=== PATIENT | female | born 1940 | race Caucasian/White ===

== ENCOUNTER → 2016-05-31 | Outpatient (CLI) | payer MEDICARE ==
[2014-06-09 18:14] VITALS: BP 151/95
[~2016-05-31] MED LIST: ALLO300T PO; ASPI-482 PO; ESOM40CA PO; FENO135C PO; FURO40TA4 PO; INDO25CA PO; LIPITOR80 MG PO; MULT1TAB52 PO; OLME40TA PO; POTA20TA4 PO; VITA80003 PO; [UNRECOGNIZED DRUG - OTHER]
[2016-05-31 10:27] LABS: BASO % 1 % (0-3); EOS % 1 % (0-3); HEMATOCRIT 45.2 % (36.0-47.0); HEMOGLOBIN 14.5 g/dL (12.0-15.5); LYMPH # 1.8 x10^3/uL (1.0-4.8); LYMPH % 39 % (24-48); MEAN CORPUSCULAR HEMOGLOBIN 29 pg (25-35); MEAN CORPUSCULAR HGB CONC 32 g/dL (31-37); MEAN CORPUSCULAR VOLUME 91 fL (79-100); MONO # 0.4 x10^3/uL (0.0-1.1); MONO % 9 % (0-9); NEUT # 2.3 x10^3uL (1.8-7.7); NEUT % 50 % (31-73); PLATELET COUNT 194 x10^3/uL (140-400); RED BLOOD COUNT 4.96 x10^6/uL (3.50-5.40); RED CELL DISTRIBUTION WIDTH 16.1 % (11.5-14.5); WHITE BLOOD COUNT 4.5 x10^3/uL (4.0-11.0)
[2016-05-31 10:49] LABS: ALBUMIN 3.6 g/dL (3.4-5.0); CALCIUM 9.2 mg/dL (8.5-10.1); CREATININE 0.9 mg/dL (0.6-1.0); GFR 61.2; POTASSIUM 4.4 mmol/L (3.5-5.1); TOTAL BILIRUBIN 0.4 mg/dL (0.2-1.0); TOTAL PROTEIN 7.1 g/dL (6.4-8.2)
== END | disposition home or self-care (01) ==
LOC: LAB 09:06
PROVIDERS: ATTEND Specialist
DX: E78.5 Hyperlipidemia, unspecified (principal); M79.89 Other specified soft tissue disorders
CPT/HCPCS: 36415; 80053; 80061; 83880; 85027

== ENCOUNTER 2017-06-14 09:26 | Emergency (ER) | payer MEDICARE ==
[~2017-06-14] VITALS: Ht 160 cm; Wt 117.9 kg
[~2017-06-14 09:26] MED LIST changes: -OLME40TA PO; +OLME40TA12 PO
[2017-06-14 09:30] VITALS: BP 209/99
--- NOTE | 2017-06-14 09:48 | PHYS DOC ---
Past History Past Medical History: CVA, Hypertension, Other Past Surgical History: , Hysterectomy, Other Alcohol Use: Occasionally Drug Use: None Adult General Chief Complaint Chief Complaint: MECHANICAL FALL HPI HPI 77 year old female patient states she was sleeping at the edge of her bed that is about 2.5 feet high and woke up on the floor of her bedroom 6:30 AM with injury to right side of her face and rated her pain 6/10. Patient also complaining of pain in her neck and right mid back without shortness of breath. Patient complaining of pain in bilateral arms and numbness of both hand since her fall . She doesn't want to have pain medication in ER. Review of Systems Review of Systems Constitutional: Denies fever or chills [] Eyes: Denies change in visual acuity, redness, or eye pain [] HENT: Denies nasal congestion or sore throat [] Respiratory: Denies cough or shortness of breath [] Cardiovascular: No additional information not addressed in HPI [] GI: Denies abdominal pain, nausea, vomiting, bloody stools or diarrhea [] : Denies dysuria or hematuria [] Musculoskeletal: Denies back pain or joint pain [] Integument: Denies rash or skin lesions [] Neurologic: Denies headache, focal weakness or sensory changes [] Endocrine: Denies polyuria or polydipsia [] All other systems were reviewed and found to be within normal limits, except as documented in this note. Allergies Allergies Allergies Coded Allergies Type Severity Reaction Last Updated Verified codeine Allergy Mild vomiting 06/03/14 Yes Physical Exam Physical Exam Constitutional: Well developed, well nourished, no acute distress, non-toxic appearance. [] HENT: Normocephalic, atraumatic, bilateral external ears normal, oropharynx moist, no oral exudates, nose normal. [] Eyes: PERRLA, EOMI, conjunctiva normal, no discharge. [] Neck: Normal range of motion, no tenderness, supple, no stridor. [] Cardiovascular:Heart rate regular rhythm, no murmur [] Lungs & Thorax: Bilateral breath sounds clear to auscultation [] Abdomen: Bowel sounds normal, soft, no tenderness, no masses, no pulsatile masses. [] Skin: Warm, dry, no erythema, no rash. [] Back: No tenderness, no CVA tenderness. [] Extremities: No tenderness, no cyanosis, no clubbing, ROM intact, no edema. [] Neurologic: Alert and oriented X 3, normal motor function, normal sensory function, no focal deficits noted. [] Psychologic: Affect normal, judgement normal, mood normal. [] EKG EKG [] Radiology/Procedures Radiology/Procedures [] [address] [address] IMAGING REPORT Signed PATIENT: ESTRELLITA WHITE ACCOUNT: [id number] : 1940 LOCATION: ER AGE: 77 SEX: F EXAM STATUS: REG ER ORD. PHYSICIAN: ANTONIO MALDONADO MD REASON: fall PROCEDURE: CT HEAD AND CERVICAL SPINE WO CT of the head without contrast, 06/14/2017: HISTORY: Fall, injury The ventricles are within normal limits in size. There is no shift of the midline structures. There is no evidence of acute intracranial hemorrhage or mass effect. Small lucencies are present in the basal ganglia bilaterally compatible with old lacunar infarcts and/or prominent perivascular spaces. There is partial opacification of the left mastoid air cells presumably on an inflammatory basis. The visualized paranasal sinuses are unremarkable. IMPRESSION: 1. No acute intracranial abnormality is detected. 2. Left mastoiditis CT of the cervical spine without contrast, 06/14/2017: Noncontrast scans were obtained with multiplanar reconstructions produced. There is patient motion artifact on some of these images. There is moderate disc space narrowing and marginal spurring at C4-5, C5-6 and C6-7. There are mild to moderate degenerative changes involving scattered facet joints bilaterally. The posterior disc margins are not clearly delineated, however, there is a moderate sized posterior disc protrusion at C4-5 resulting in moderate central spinal stenosis at that level. There is also moderate central spinal stenosis at C5-6 due to spurring and mild canal narrowing at C6-7. Considerable foraminal encroachment is also present bilaterally at these levels. No acute fracture or dislocation is identified. There is extensive calcific plaquing at both carotid bifurcations. IMPRESSION: 1. Moderately severe multilevel degenerative disc disease with moderate central spinal stenosis at C4-5 and C5-6. 2. No acute bony abnormality is detected. Electronically signed by: Claudio Hicks MD (06/14/2017 10:37 AM) [facility] DICTATED AND SIGNED BY: CLAUDIO HICKS MD DATE: 06/14/17 1027 CC: ANTONIO MALDONADO MD; KEN GOULD MD ~ [place] [address] IMAGING REPORT Signed PATIENT: ESTRELLITA WHITE ACCOUNT: [id number] : 1940 LOCATION: ER AGE: 77 SEX: F EXAM STATUS: REG ER ORD. PHYSICIAN: ANTONIO MALDONADO MD REASON: fall PROCEDURE: RIBS RIGHT AND PA CHEST EXAM: Chest and right ribs, 4 views; lumbar spine, 3 views; bilateral humeri, 4 views. HISTORY: Pain. Fall from bed. COMPARISON: None. FINDINGS: Chest and right ribs: A frontal view of the chest and 4 views of the right ribs are obtained. There is no infiltrate, pleural effusion or pneumothorax. The cardiac silhouette is mildly enlarged. No displaced rib fracture is seen. Lumbar spine: Frontal, lateral and coned sacral views of the lumbar spine are obtained. There is grade 1 anterolisthesis of L3 on L4 and L4 and L5. There is facet arthropathy predominantly at the mid lower lumbar levels. There is also degenerative endplate spurring at the lower and mid thoracic levels. Bilateral humeri: Frontal and lateral views of both humeri are obtained. There is no fracture, dislocation or subluxation. IMPRESSION: 1. No acute pulmonary finding. 2. No acute osseous finding. 3. Grade 1 anterolisthesis of L3 on L4 and L4 and L5 and degenerative change within the thoracic and lumbar spine. Electronically signed by: Leticia Kolb MD (06/14/2017 10:15 AM) [id number] DICTATED AND SIGNED BY: LETICIA KOLB MD DATE: 06/14/17 1013 Course & Med Decision Making Course & Med Decision Making Pertinent Imaging studies reviewed. (See chart for details) discharge: I've spoken with the patient and/or caregivers. I've explained the patient's condition, diagnosis and treatment plan based on information available to me at this time. I've answered the patient's and/or caregivers questions and addressed any concerns. The patient and/or caregivers have a good understanding the patient's diagnosis, condition and treatment plan as can be expected at this point. Vital signs have been stabilized. The patient's condition is stable for discharge from the emergency department. The patient will pursue further outpatient evaluation with her primary care provider or other designated consulting physician as outlined in the discharge instructions. Patient and/or caregivers are agreeable to this plan of care and follow-up instructions have been explained in detail. The patient and/or caregivers have received these instructions in written format and expressed understanding of these discharge instructions. The patient and her caregivers are aware that if any significant change in condition or worsening of symptoms should prompt him to immediately return to this of the closest emergency department. If an emergent department is not readily available I would encourage him to call 911. [] Dragon Disclaimer Dragon Disclaimer This electronic medical record was generated, in whole or in part, using a voice recognition dictation system. Departure Departure: Impression: Primary Impression: Facial contusion Additional Impressions: Fall at home Back injury Arm pain Disposition: HOME, SELF-CARE (At 1056) Condition: STABLE Referrals: KEN GOULD MD (PCP) Patient Instructions: Facial or Scalp Contusion, Fall Prevention and Home Safety, Soft Tissue Injury of the Neck Additional Instructions: Drink plenty of liquids Follow-up with your primary care physician in 3-5 days Return to ER if not getting better Apply ice on the affected area Scripts Tramadol Hcl (TRAMADOL HCL) 50 Mg Tablet 50 MG PO PRN Q6HRS Y for PAIN, #14 TAB Prov: ANTONIO MALDONADO MD 06/14/17 Problem Qualifiers ANTONIO MALDONADO MD June 14, 2017 09:48
--- NOTE | 2017-06-14 10:18 | RAD ---
EXAM: Chest and right ribs, 4 views; lumbar spine, 3 views; bilateral humeri, 4 views. HISTORY: Pain. Fall from bed. COMPARISON: None. FINDINGS: Chest and right ribs: A frontal view of the chest and 4 views of the right ribs are obtained. There is no infiltrate, pleural effusion or pneumothorax. The cardiac silhouette is mildly enlarged. No displaced rib fracture is seen. Lumbar spine: Frontal, lateral and coned sacral views of the lumbar spine are obtained. There is grade 1 anterolisthesis of L3 on L4 and L4 and L5. There is facet arthropathy predominantly at the mid lower lumbar levels. There is also degenerative endplate spurring at the lower and mid thoracic levels. Bilateral humeri: Frontal and lateral views of both humeri are obtained. There is no fracture, dislocation or subluxation. IMPRESSION: 1. No acute pulmonary finding. 2. No acute osseous finding. 3. Grade 1 anterolisthesis of L3 on L4 and L4 and L5 and degenerative change within the thoracic and lumbar spine. Electronically signed by: Leticia Tan MD (06/14/2017 10:15 AM) [facility]
--- NOTE | 2017-06-14 10:40 | RAD ---
CT of the head without contrast, 06/14/2017: HISTORY: Fall, injury The ventricles are within normal limits in size. There is no shift of the midline structures. There is no evidence of acute intracranial hemorrhage or mass effect. Small lucencies are present in the basal ganglia bilaterally compatible with old lacunar infarcts and/or prominent perivascular spaces. There is partial opacification of the left mastoid air cells presumably on an inflammatory basis. The visualized paranasal sinuses are unremarkable. IMPRESSION: 1. No acute intracranial abnormality is detected. 2. Left mastoiditis CT of the cervical spine without contrast, 06/14/2017: Noncontrast scans were obtained with multiplanar reconstructions produced. There is patient motion artifact on some of these images. There is moderate disc space narrowing and marginal spurring at C4-5, C5-6 and C6-7. There are mild to moderate degenerative changes involving scattered facet joints bilaterally. The posterior disc margins are not clearly delineated, however, there is a moderate sized posterior disc protrusion at C4-5 resulting in moderate central spinal stenosis at that level. There is also moderate central spinal stenosis at C5-6 due to spurring and mild canal narrowing at C6-7. Considerable foraminal encroachment is also present bilaterally at these levels. No acute fracture or dislocation is identified. There is extensive calcific plaquing at both carotid bifurcations. IMPRESSION: 1. Moderately severe multilevel degenerative disc disease with moderate central spinal stenosis at C4-5 and C5-6. 2. No acute bony abnormality is detected. Electronically signed by: Claudio Hicks MD (06/14/2017 10:37 AM) [facility]
[2017-06-14] MEDS ORDERED: TRAM50TA PO (10:58)
== END 2017-06-14 11:05 | disposition home or self-care (01) ==
LOC: ER 09:26
DX: S00.83XA Contusion of other part of head, initial encounter (principal); S39.92XA Unspecified injury of lower back, initial encounter; M54.2 Cervicalgia; M79.601 Pain in right arm; M79.602 Pain in left arm; I10 Essential (primary) hypertension; Z86.73 Personal history of transient ischemic attack (TIA), and cerebral infarction without residual deficits; Z88.5 Allergy status to narcotic agent; W06.XXXA Fall from bed, initial encounter; Y93.84 Activity, sleeping; Y99.8 Other external cause status; Y92.89 Other specified places as the place of occurrence of the external cause
CPT/HCPCS: 70450; 71101; 72100; 72125; 73060; 99284-25

== ENCOUNTER 2017-09-12 11:25 | Inpatient (IN) | payer MEDICARE ==
[~2017-09-12] VITALS: Ht 160 cm; Wt 115.8 kg
[~2017-09-12 11:25] MED LIST changes: -INDO25CA PO; +INDO25CA5 PO; +TRAM50TA PO
--- NOTE | 2017-09-12 11:36 | EKG ---
[address] [address] Test Date: 2017-09-12 Test Time: 11:34:07 Pat Name: ESTRELLITA WHITE Department: Room: Gender: F Preparation Room Manager: : 1940 Requested By: ANTONIO MALDONADO Order Number: [id number] Reading MD: Measurements Intervals [place] Rate: 58 P: 7 FL: 174 QRS: -11 QRSD: 98 T: 66 QT: 440 QTc: 436 Interpretive Statements SINUS RHYTHM LEFTWARD AXIS QRS(T) CONTOUR ABNORMALITY CONSIDER ANTEROSEPTAL MYOCARDIAL DAMAGE T ABNORMALITY IN HIGH LATERAL LEADS ABNORMAL ECG RI6.01 Unconfirmed report No previous ECG available for comparison
[2017-09-12 11:57] LABS: BASO % 1 % (0-3); EOS % 1 % (0-3); HEMATOCRIT 46.4 % (36.0-47.0); HEMOGLOBIN 15.5 g/dL (12.0-15.5); LYMPH # 2.3 x10^3/uL (1.0-4.8); LYMPH % 35 % (24-48); MEAN CORPUSCULAR HEMOGLOBIN 30 pg (25-35); MEAN CORPUSCULAR HGB CONC 34 g/dL (31-37); MEAN CORPUSCULAR VOLUME 89 fL (79-100); MONO # 0.5 x10^3/uL (0.0-1.1); MONO % 8 % (0-9); NEUT # 3.8 x10^3uL (1.8-7.7); NEUT % 56 % (31-73); PLATELET COUNT 210 x10^3/uL (140-400); RED BLOOD COUNT 5.21 x10^6/uL (3.50-5.40); RED CELL DISTRIBUTION WIDTH 16.3 % (11.5-14.5); WHITE BLOOD COUNT 6.7 x10^3/uL (4.0-11.0)
--- NOTE | 2017-09-12 12:04 | RAD ---
PA and lateral chest radiograph. History: Pain in back and under shoulder. Left upper extremity weakness. Comparison: June 14, 2017. Findings: Cardiomediastinal silhouette is within normal limits for size. Bilateral lung cornejo appear clear without evidence of infiltrate, effusion, or pneumothorax. Multiple thoracic levels demonstrate marginal disc osteophytes. Impression: 1. No acute cardiopulmonary process. Electronically signed by: Wilfrido Dangelo MD (09/12/2017 12:00 PM) [place] [id number]
[2017-09-12 12:34] LABS: ALBUMIN 3.9 g/dL (3.4-5.0); CALCIUM 10.5 mg/dL (8.5-10.1); CREATININE 1.1 mg/dL (0.6-1.0); GFR 48.4; MAGNESIUM 1.8 mg/dL (1.8-2.4); POTASSIUM 3.7 mmol/L (3.5-5.1); TOTAL BILIRUBIN 0.5 mg/dL (0.2-1.0); TOTAL PROTEIN 7.7 g/dL (6.4-8.2)
--- NOTE | 2017-09-12 12:47 | RAD ---
Right upper quadrant abdominal ultrasound History: Left arm and shoulder pain. Comparison: CT abdomen without contrast May 30, 2015. Technique: Transabdominal ultrasound images are obtained. Findings: Visualized pancreas is unremarkable. The head of the pancreas is not well-visualized due to overlying bowel gas. Liver is normal in echogenicity. No focal hepatic masses are identified. Portal flow is hepatopedal. The right hepatic lobe measures 19.3 cm. Gallbladder has an unremarkable appearance. Common bile duct caliber is normal measuring 6 mm in diameter. The right kidney measures 9.7 cm in length and is without evidence of obstruction or stone. There is a right upper pole cyst measuring up to 1.6 cm. IVC is unremarkable. IMPRESSION: 1. Hepatomegaly. 2. Small right renal cyst. Electronically signed by: Martin Quintana MD (09/12/2017 12:44 PM) [id number]
[2017-09-12 12:56] LABS: BILIRUBIN,URINE NEG (NEG); CLARITY,URINE CLEAR; COLOR,URINE YELLOW; GLUCOSE,URINE NEG (NEG); NITRITE,URINE NEG (NEG); UROBILINOGEN,URINE 0.2 mg/dL (0.2 mg/dL)
[2017-09-12] MEDS ORDERED: ASPIRIN 81 MG TAB.CHEW PO ONE (13:00)
--- NOTE | 2017-09-12 13:00 | PHYS DOC ---
Past History Past Medical History: CAD, CVA, High Cholesterol, Hypertension, Kidney Stones Past Surgical History: , Hysterectomy, Other Alcohol Use: None Drug Use: None Adult General Chief Complaint Chief Complaint: CHEST PAIN HPI HPI Patient is a [77] year old [female] who presents with complaining of shoulder blade pain and left hand numbness of the last an hour as a constant sharp pain without radiation. Patient complaining of mild dizziness and palpitation and states she thinks she had a panic attack and hyperventilation. Patient denies injury, chest pain, palpitation, nausea and vomiting, focal neuro deficit except for left hand numbness, recent URI symptoms or dehydration, diarrhea and constipation, urinary symptom. Review of Systems Review of Systems Constitutional: Denies fever or chills [] Eyes: Denies change in visual acuity, redness, or eye pain [] HENT: Denies nasal congestion or sore throat [] Respiratory: Denies cough or shortness of breath [] Cardiovascular: No additional information not addressed in HPI [] GI: Denies abdominal pain, nausea, vomiting, bloody stools or diarrhea [] : Denies dysuria or hematuria [] Musculoskeletal: Reports back pain , denies joint pain [] Integument: Denies rash or skin lesions [] Neurologic: Denies headache, focal weakness or sensory changes [] Endocrine: Denies polyuria or polydipsia [] All other systems were reviewed and found to be within normal limits, except as documented in this note. Allergies Allergies Allergies Coded Allergies Type Severity Reaction Last Updated Verified codeine Allergy Mild vomiting 06/03/14 Yes Physical Exam Physical Exam Constitutional: Well developed, well nourished, mild distress, non-toxic appearance. [] HENT: Normocephalic, atraumatic, oropharynx moist, no oral exudates, nose normal. [] Eyes: PERRLA, EOMI, conjunctiva normal, no discharge. [] Neck: Normal range of motion, no tenderness, supple, no stridor. [] Cardiovascular:Heart rate regular rhythm, no murmur [] Lungs & Thorax: Bilateral breath sounds clear to auscultation, reproducible substernal chest pain [] Abdomen: Bowel sounds normal, soft, no tenderness, no masses, no pulsatile masses. [] Skin: Warm, dry, no erythema, no rash. [] Back: No midline tenderness, no CVA tenderness. [] Extremities: No tenderness, no cyanosis, no clubbing, ROM intact, no edema, no paresthesia. [] Neurologic: Alert and oriented X 3, normal motor function, normal sensory function, no focal deficits noted, NIH scale of 0. [] Psychologic: Affect normal, judgement normal, mood normal. [] Current Patient Data Vital Signs Vital Signs Date Time Temp Pulse Resp B/P (MAP) Pulse Ox O2 Delivery O2 Flow Rate FiO2 09/12/17 12:25 50 16 138/83 (101) 96 Room Air 09/12/17 11:30 98.2 Lab Results Laboratory Tests Test 09/12/17 11:41 White Blood Count 6.7 x10^3/uL (4.0-11.0) Red Blood Count 5.21 x10^6/uL (3.50-5.40) Hemoglobin 15.5 g/dL (12.0-15.5) Hematocrit 46.4 % (36.0-47.0) Mean Corpuscular Volume 89 fL (79-100) Mean Corpuscular Hemoglobin 30 pg (25-35) Mean Corpuscular Hemoglobin Concent 34 g/dL (31-37) Red Cell Distribution Width 16.3 % (11.5-14.5) H Platelet Count 210 x10^3/uL (140-400) Neutrophils (%) (Auto) 56 % (31-73) Lymphocytes (%) (Auto) 35 % (24-48) Monocytes (%) (Auto) 8 % (0-9) Eosinophils (%) (Auto) 1 % (0-3) Basophils (%) (Auto) 1 % (0-3) Neutrophils # (Auto) 3.8 x10^3uL (1.8-7.7) Lymphocytes # (Auto) 2.3 x10^3/uL (1.0-4.8) Monocytes # (Auto) 0.5 x10^3/uL (0.0-1.1) Eosinophils # (Auto) 0.0 x10^3/uL (0.0-0.7) Basophils # (Auto) 0.0 x10^3/uL (0.0-0.2) Prothrombin Time 10.8 SEC (9.4-11.4) Prothrombin Time INR 1.1 (0.9-1.1) Sodium Level 139 mmol/L (136-145) Potassium Level 3.7 mmol/L (3.5-5.1) Chloride Level 101 mmol/L (98-107) Carbon Dioxide Level 29 mmol/L (21-32) Anion Gap 9 (6-14) Blood Urea Nitrogen 28 mg/dL (7-20) H Creatinine 1.1 mg/dL (0.6-1.0) H Estimated GFR (Cockcroft-Gault) 48.4 BUN/Creatinine Ratio 25 (6-20) H Glucose Level 109 mg/dL (70-99) H Calcium Level 10.5 mg/dL (8.5-10.1) H Magnesium Level 1.8 mg/dL (1.8-2.4) Total Bilirubin 0.5 mg/dL (0.2-1.0) Aspartate Amino Transferase (AST) 20 U/L (15-37) Alanine Aminotransferase (ALT) 26 U/L (14-59) Alkaline Phosphatase 77 U/L (46-116) Creatine Kinase 49 U/L (26-192) Creatine Kinase MB (Mass) 1.3 ng/mL (0.0-3.6) Creatine Kinase MB Relative Index 2.7 % (0-4) Troponin I Quantitative < 0.017 ng/mL (0-0.055) DR-Ntx-H-Type Natriuretic Peptide 111 pg/mL (0-449) Total Protein 7.7 g/dL (6.4-8.2) Albumin 3.9 g/dL (3.4-5.0) Albumin/Globulin Ratio 1.0 (1.0-1.7) Lipase 151 U/L (73-393) EKG EKG EKG interpreted by me. EKG at 1134 showed sinus bradycardia at rate of 58, left reynoso axis, poor R-wave progress in anteroseptal leads, no acute ST and T-wave abnormalities Radiology/Procedures Radiology/Procedures [] Course & Med Decision Making Course & Med Decision Making Pertinent Labs and Imaging studies reviewed. (See chart for details) Evaluation of patient in ER showed 77-year-old female patient with complaining of sudden onset of shoulder blade pain and left hand numbness. Patient did not have passed his urine ER. Patient had heart rate of 58 at arrival to ER that gradually dropped to 47 without taking beta akira medication. CT head and labs was unremarkable. Because of bradycardia and multiple cardiac risk factor plan to admit patient for observation Dr. Cunha accepted admission at 1259. [] Dragon Disclaimer Dragon Disclaimer This electronic medical record was generated, in whole or in part, using a voice recognition dictation system. Departure Departure: Impression: Primary Impression: Sinus bradycardia Additional Impressions: Back pain Paresthesia Hypercalcemia Renal insufficiency Morbid obesity Disposition: 09 ADMITTED INPATIENT (at 1300) Admitting Physician: Jossie Cunha (Accepted admission at 1259) Condition: IMPROVED Referrals: KEN GOULD MD (PCP) Problem Qualifiers ANTONIO MALDONADO MD Sep 12, 2017 13:00
--- NOTE | 2017-09-12 13:34 | RAD ---
CT HEAD INDICATION: Left hand and arm numbness COMPARISON: 06/14/2017 TECHNIQUE: 5 mm contiguous axial images were obtained from the skull base to the vertex in both bone and soft tissue algorithm. Exposure: One or more of the following individualized dose reduction techniques were utilized for this examination: 1. Automated exposure control 2. Adjustment of the mA and/or kV according to patient size 3. Use of iterative reconstruction technique FINDINGS: No abnormal attenuation within the brain parenchyma. No evidence of acute intracranial hemorrhage. No extra-axial fluid collections. No mass effect or midline shift. Ventricular size is appropriate. Basal cisterns are patent. No fractures identified.Yee-white differentiation is preserved.Globes and orbits are within normal limits. Mild opacification of the left mastoid air cells are similar to prior exam. IMPRESSION: No acute intracranial findings. Electronically signed by: Tim Genao MD (09/12/2017 1:30 PM) [id number]
[2017-09-12 14:29] VITALS: BP 169/68
[2017-09-12] MEDS ORDERED: OMEG100021 PO (14:32)
[2017-09-12] MEDS ORDERED: CYAN100T PO (14:32)
[2017-09-12] MEDS ORDERED: UBID1CAP41 PO (14:32)
[2017-09-12] MEDS ORDERED: GLUC1CAP48 PO (14:32)
[2017-09-12] MEDS ORDERED: LOSA50TA6 PO (14:32)
[2017-09-12] MEDS ORDERED: PROP40TA PO (14:32)
[2017-09-12] MEDS ORDERED: CHOL10003 PO (14:32)
--- NOTE | 2017-09-12 14:33 | PDOC2 ---
CARDIAC CONSULT DATE OF CONSULT Date Of Consult DATE: 09/12/17 TIME: 14:26 REASON FOR CONSULT Reason for Consult Back and arm pain REFERRING PHYSICIAN Referring Physician Dr. Mahdi ARMENDARIZ History of Present Illness Ms. Moreira is a very pleasant 77-year-old female who usually follows with Dr. Vergara. Patient has a history of essential hypertension, mixed hyperlipidemia, obesity, and family history of heart disease. The patient presented after developing an acute onset of upper back pain that radiated down her left arm and associated with hand numbness. Patient reports that the pain persisted, and therefore decided to present for further evaluation. She does report that the pain was were rated at 8/10 at its worse, but has improved to about 5/10 currently. She has not been able to identify any exacerbating or relieving factors. She denies any significant chest discomfort associated with her symptoms. Patient has not had any palpitations, lightheadedness, or syncope. According to the patient, she did have an ischemic evaluation performed in the form of a stress test earlier this year that was ultimately deemed to be low risk. In addition, she apparently had a recent echocardiogram that demonstrated a degree of LVH, but otherwise was unremarkable. Unfortunately, do not have the studies available to me to review today. Patient 's workup thus far has included initial troponin which was unremarkable. Her ECG demonstrated sinus bradycardia with no significant ischemic changes. Patient is otherwise doing well this afternoon, has no other particular complaints. PAST MEDICAL HISTORY Cardiovascular: HTN, hyperipidemia, Other (obesity) FAMILY HISTORY Family History: Heart Disease (In her father who had CABG, PCI, and AVR in his 60s) SOCIAL HISTORY Smoke: No ALCOHOL: rare CURRENT MEDICATIONS Current Medications Current Medications Aspirin (Children'S Aspirin) 324 mg 1X ONCE PO Last administered on 09/12/17at 13:22; Start 09/12/17 at 13:00; Stop 09/12/17 at 13:02; Status DC Active Scripts Active Tramadol Hcl (Tramadol HCl) 50 Mg Tablet 50 Mg PO PRN Q6HRS PRN Reported [B-comlex] 1 DAILY Vitamin A 8,000 Unit Capsule 8,000 Unit PO DAILY Multivitamins (Multivitamin) 1 Each Tablet 1 Each PO DAILY Aspir 81 (Aspirin) 81 Mg Tablet. 81 Mg PO DAILY Lipitor (Atorvastatin Calcium) 80 Mg Tablet 80 Mg PO Trilipix (Fenofibric Acid (Choline)) 135 Mg Capsule.dr 135 Mg PO DAILY Klor-Con M20 (Potassium Chloride) 20 Meq Tab.er.prt 20 Meq PO DAILY Indomethacin 25 Mg Capsule 25 Mg PO Q6HRS PRN PRN Allopurinol 300 Mg Tablet 300 Mg PO DAILY Nexium Capsule (Esomeprazole Magnesium) 40 Mg Capsule.dr 40 Mg PO Furosemide 40 Mg Tablet 40 Mg PO Benicar (Olmesartan Medoxomil) 40 Mg Tablet 40 Mg PO DAILY ALLERGIES Allergies: Coded Allergies: codeine (Verified Allergy, Mild, vomiting, 06/03/14) ROS Review of Systems 14-point organ system ROS is negative other than as described above. VITALS Vital Signs Vital Signs Date Time Temp Pulse Resp B/P (MAP) Pulse Ox O2 Delivery O2 Flow Rate FiO2 09/12/17 12:57 51 16 121/51 (74) 95 Room Air 09/12/17 11:30 98.2 LABS LABS Laboratory Tests Test 09/12/17 11:41 09/12/17 11:56 White Blood Count 6.7 x10^3/uL (4.0-11.0) Red Blood Count 5.21 x10^6/uL (3.50-5.40) Hemoglobin 15.5 g/dL (12.0-15.5) Hematocrit 46.4 % (36.0-47.0) Mean Corpuscular Volume 89 fL (79-100) Mean Corpuscular Hemoglobin 30 pg (25-35) Mean Corpuscular Hemoglobin Concent 34 g/dL (31-37) Red Cell Distribution Width 16.3 % (11.5-14.5) Platelet Count 210 x10^3/uL (140-400) Neutrophils (%) (Auto) 56 % (31-73) Lymphocytes (%) (Auto) 35 % (24-48) Monocytes (%) (Auto) 8 % (0-9) Eosinophils (%) (Auto) 1 % (0-3) Basophils (%) (Auto) 1 % (0-3) Neutrophils # (Auto) 3.8 x10^3uL (1.8-7.7) Lymphocytes # (Auto) 2.3 x10^3/uL (1.0-4.8) Monocytes # (Auto) 0.5 x10^3/uL (0.0-1.1) Eosinophils # (Auto) 0.0 x10^3/uL (0.0-0.7) Basophils # (Auto) 0.0 x10^3/uL (0.0-0.2) Prothrombin Time 10.8 SEC (9.4-11.4) Prothromb Time International Ratio 1.1 (0.9-1.1) Sodium Level 139 mmol/L (136-145) Potassium Level 3.7 mmol/L (3.5-5.1) Chloride Level 101 mmol/L (98-107) Carbon Dioxide Level 29 mmol/L (21-32) Anion Gap 9 (6-14) Blood Urea Nitrogen 28 mg/dL (7-20) Creatinine 1.1 mg/dL (0.6-1.0) Estimated GFR (Cockcroft-Gault) 48.4 BUN/Creatinine Ratio 25 (6-20) Glucose Level 109 mg/dL (70-99) Calcium Level 10.5 mg/dL (8.5-10.1) Magnesium Level 1.8 mg/dL (1.8-2.4) Total Bilirubin 0.5 mg/dL (0.2-1.0) Aspartate Amino Transf (AST/SGOT) 20 U/L (15-37) Alanine Aminotransferase (ALT/SGPT) 26 U/L (14-59) Alkaline Phosphatase 77 U/L (46-116) Creatine Kinase 49 U/L (26-192) Creatine Kinase MB (Mass) 1.3 ng/mL (0.0-3.6) Creatine Kinase MB Relative Index 2.7 % (0-4) Troponin I Quantitative < 0.017 ng/mL (0-0.055) IP-Soq-K-Type Natriuretic Peptide 111 pg/mL (0-449) Total Protein 7.7 g/dL (6.4-8.2) Albumin 3.9 g/dL (3.4-5.0) Albumin/Globulin Ratio 1.0 (1.0-1.7) Lipase 151 U/L (73-393) Urine Collection Type Unknown Urine Color Yellow Urine Clarity Clear Urine pH 7.0 Urine Specific [place] 1.015 Urine Protein Neg (NEG-TRACE) Urine Glucose (UA) Neg mg/dL (NEG) Urine Ketones (Stick) Neg mg/dL (NEG) Urine Blood Neg (NEG) Urine Nitrite Neg (NEG) Urine Bilirubin Neg (NEG) Urine Urobilinogen Dipstick 0.2 mg/dL (0.2 mg/dL) Urine Leukocyte Esterase Neg (NEG) EKG EKG Sinus bradycardia with normal axis and intervals. No significant ectopy or arrhythmias. No significant acute ischemic changes. ASSESSMENT/PLAN Assessment/Plan 1. Back/arm pain 2. Essential hypertension 3. Mixed hyperlipidemia 4. Obesity 5. Family history of CAD Ms. Moreira is currently hospitalized after presenting with an acute onset of upper back pain that radiated down her left arm and associated with hand tingling and numbness. Etiology of her symptoms is not completely clear at this point in time. The patient does describe atypical features. Nonetheless, she does have multiple underlying risk factors, and therefore, currently one cannot completely rule out a cardiac source of her presentation. The patient does usually follows with Dr. Vergara, and apparently did have an extensive noninvasive cardiac workup within the past year which included a stress test as well as an echocardiogram. I will ask that these records be sent over for my review. In the meantime, I agree with continuing to monitor closely and proceeding with noninvasive workup with serial troponin enzymes and ECG. If her symptoms do persist, it may be reasonable to proceed with an ischemic evaluation in the inpatient setting. Nonetheless, if her symptoms resolve, and her workup is noted to be unremarkable, further workup in the outpatient setting may be appropriate. In the meantime, I agree with continuing her home cardiac regimen as prescribed. We will continue to follow along. Please call any further questions. SOL ARCE MD Sep 12, 2017 14:33
[2017-09-12] MEDS: KETOROLAC 30 MG/ML VIAL. IV PRN (15:21)
[2017-09-12 19:45] VITALS: BP 111/60
[2017-09-12 23:55] VITALS: BP 111/71
[2017-09-13 06:17] VITALS: BP 166/69
--- NOTE | 2017-09-13 09:31 | PDOC ---
ARMIN GOMES [employer]ETAKER 09/13/17 0931: PROGRESS NOTES Diagnosis Problem Problems Medical Problems: (1) Back pain Status: Acute (2) Hypercalcemia Status: Acute (3) Morbid obesity Status: Acute (4) Paresthesia Status: Acute (5) Renal insufficiency Status: Acute (6) Sinus bradycardia Status: Acute Assessment Problems We are seeing the patient for chest pain 1. Chest pain - VA ruled out. Likely muscular. Give dose of tordol, flexeril , diclofenec gel and heating pad. May discharge home for Outpatient Nuclear Stress test. 2. Hypertension - Resume home medications. 3. Bradycardia - hold propranolol 4. Hyperlipidemia - continue fish oil and Lipitor. Check lipids and consider stopping Tricor. Subjective Pain has been constant with intermittent tingling in fingers. When she came in yesterday was 09/16 now 03/19 and feels that Tordol does help. She fell last month out of bed and braced herself with left shoulder. Her upper back is sore to touch and tender. Pain is not related to activity and has no associated symptoms. Objective Vital Signs Date Time Temp Pulse Resp B/P (MAP) Pulse Ox O2 Delivery O2 Flow Rate FiO2 09/13/17 06:17 98.1 75 20 166/69 (101) 94 Room Air Intake and Output 09/13/17 07:00 Intake Total 0 ml Balance 0 ml Intake Oral 0 ml # Voids 3 Abdomen: Normal bowel sounds, Soft, No tenderness Heart: Regular rate, Normal S1, Normal S2, Other (+ systolic murmur) General: Alert, Oriented X3, Cooperative HEENT: EOMI, Mucous membr. moist/pink Lungs: Clear to auscultation Psych/Mental Status: Mental status NL, Mood NL Review of Relevant I have reviewed the following items nadia (where applicable) has been applied. Labs Laboratory Tests Test 09/12/17 11:41 09/12/17 11:56 09/12/17 16:45 09/12/17 19:40 White Blood Count 6.7 x10^3/uL (4.0-11.0) Red Blood Count 5.21 x10^6/uL (3.50-5.40) Hemoglobin 15.5 g/dL (12.0-15.5) Hematocrit 46.4 % (36.0-47.0) Mean Corpuscular Volume 89 fL (79-100) Mean Corpuscular Hemoglobin 30 pg (25-35) Mean Corpuscular Hemoglobin Concent 34 g/dL (31-37) Red Cell Distribution Width 16.3 % (11.5-14.5) Platelet Count 210 x10^3/uL (140-400) Neutrophils (%) (Auto) 56 % (31-73) Lymphocytes (%) (Auto) 35 % (24-48) Monocytes (%) (Auto) 8 % (0-9) Eosinophils (%) (Auto) 1 % (0-3) Basophils (%) (Auto) 1 % (0-3) Neutrophils # (Auto) 3.8 x10^3uL (1.8-7.7) Lymphocytes # (Auto) 2.3 x10^3/uL (1.0-4.8) Monocytes # (Auto) 0.5 x10^3/uL (0.0-1.1) Eosinophils # (Auto) 0.0 x10^3/uL (0.0-0.7) Basophils # (Auto) 0.0 x10^3/uL (0.0-0.2) Prothrombin Time 10.8 SEC (9.4-11.4) Prothromb Time International Ratio 1.1 (0.9-1.1) Sodium Level 139 mmol/L (136-145) Potassium Level 3.7 mmol/L (3.5-5.1) Chloride Level 101 mmol/L (98-107) Carbon Dioxide Level 29 mmol/L (21-32) Anion Gap 9 (6-14) Blood Urea Nitrogen 28 mg/dL (7-20) Creatinine 1.1 mg/dL (0.6-1.0) Estimated GFR (Cockcroft-Gault) 48.4 BUN/Creatinine Ratio 25 (6-20) Glucose Level 109 mg/dL (70-99) Calcium Level 10.5 mg/dL (8.5-10.1) Magnesium Level 1.8 mg/dL (1.8-2.4) Total Bilirubin 0.5 mg/dL (0.2-1.0) Aspartate Amino Transf (AST/SGOT) 20 U/L (15-37) Alanine Aminotransferase (ALT/SGPT) 26 U/L (14-59) Alkaline Phosphatase 77 U/L (46-116) Creatine Kinase 49 U/L (26-192) Creatine Kinase MB (Mass) 1.3 ng/mL (0.0-3.6) Creatine Kinase MB Relative Index 2.7 % (0-4) Troponin I Quantitative < 0.017 ng/mL (0-0.055) < 0.017 ng/mL (0-0.055) < 0.017 ng/mL (0-0.055) MD-Tbo-Y-Type Natriuretic Peptide 111 pg/mL (0-449) Total Protein 7.7 g/dL (6.4-8.2) Albumin 3.9 g/dL (3.4-5.0) Albumin/Globulin Ratio 1.0 (1.0-1.7) Lipase 151 U/L (73-393) Urine Collection Type Unknown Urine Color Yellow Urine Clarity Clear Urine pH 7.0 Urine Specific [place] 1.015 Urine Protein Neg (NEG-TRACE) Urine Glucose (UA) Neg mg/dL (NEG) Urine Ketones (Stick) Neg mg/dL (NEG) Urine Blood Neg (NEG) Urine Nitrite Neg (NEG) Urine Bilirubin Neg (NEG) Urine Urobilinogen Dipstick 0.2 mg/dL (0.2 mg/dL) Urine Leukocyte Esterase Neg (NEG) Medications Current Medications Aspirin (Children'S Aspirin) 324 mg 1X ONCE PO Last administered on 09/12/17at 13:22; Start 09/12/17 at 13:00; Stop 09/12/17 at 13:02; Status DC Ketorolac Tromethamine (Toradol) 30 mg PRN Q6HRS PRN IV PAIN Last administered on 09/12/17at 15:21; Start 09/12/17 at 14:45; Stop 09/17/17 at 14:44 Active Scripts Active Reported Glucosamine & Chondroitin Cap (Gluc 2KCL/Chondr/Vignesh Hy/Hy Ac) 1 Each Capsule 1 Each PO DAILY Fish Oil 1,000 mg Softgel ([place]-3/Dha/Epa/Fish Oil) 1,000 Mg Capsule 1,000 Mg PO TID Co Q-10 100 Mg Softgel (Ubidecarenone/Vit E Acetate) 1 Each Capsule 1 Each PO DAILY Vitamin D3 (Cholecalciferol (Vitamin D3)) 1,000 Unit Tablet 1 Tab PO DAILY Vitamin B-12 (Cyanocobalamin (Vitamin B-12)) 100 Mcg Tablet 100 Mcg PO DAILY Propranolol Hcl 40 Mg Tablet 1 Tab PO DAILY Losartan Potassium 50 Mg Tablet 1 Tab PO DAILY [B-comlex] 1 DAILY Aspir 81 (Aspirin) 81 Mg Tablet.dr 81 Mg PO DAILY Lipitor (Atorvastatin Calcium) 80 Mg Tablet 80 Mg PO Trilipix (Fenofibric Acid (Choline)) 135 Mg Capsule.dr 135 Mg PO DAILY Klor-Con M20 (Potassium Chloride) 20 Meq Tab.er.prt 20 Meq PO DAILY Allopurinol 300 Mg Tablet 300 Mg PO DAILY Nexium Capsule (Esomeprazole Magnesium) 40 Mg Capsule.dr 40 Mg PO Furosemide 40 Mg Tablet 40 Mg PO Vitals/I & O Vital Sign - Last 24 Hours 09/12/17 09/12/17 09/12/17 09/12/17 11:30 12:25 12:57 14:29 Temp 98.2 97.7 Pulse 70 50 51 58 Resp 16 16 16 24 B/P (MAP) 138/83 (101) 121/51 (74) 169/68 (101) Pulse Ox 95 96 95 94 O2 Delivery Room Air Room Air Room Air Room Air 09/12/17 09/12/17 09/12/17 09/13/17 19:45 20:00 23:55 06:17 Temp 97.1 98.1 98.1 Pulse 20 75 Resp 20 B/P (MAP) 111/60 (77) 111/71 (84) 166/69 (101) Pulse Ox 97 94 O2 Delivery Room Air Room Air Room Air Intake and Output 09/12/17 09/12/17 09/13/17 15:00 23:00 07:00 Intake Total 0 ml 0 ml Balance 0 ml 0 ml DELTA CARR Jr, MD 09/14/17 0549: PROGRESS NOTES Assessment ADDENDUM: The patient was seen by Armin Gomes APRN and I have reviewed her findings and plan and agree with above. Due to staffing constraints, we did not have an attending available on this day to see the patient. MD ELISEO Dye Jr., JANAE M APRN Sep 13, 2017 09:31 DELTA CARR Jr, MD Sep 14, 2017 05:49
[2017-09-13] MEDS ORDERED: CYCLOBENZAPRINE 10 MG TABLET. PO PRN (09:45)
[2017-09-13] MEDS ORDERED: CYANOCOBALAMIN (VITAMIN B-12) 100 MCG TABLET PO SCH (10:00)
[2017-09-13] MEDS ORDERED: GLUCOSAMINE/CHOND 500/400MG CAPSULE PO SCH (10:00)
[2017-09-13] MEDS ORDERED: POTASSIUM CHLORIDE 20 MEQ TABLET.ER. PO SCH (10:00)
[2017-09-13] MEDS ORDERED: UBIDECARENONE 50 MG CAPSULE. PO SCH (10:00)
[2017-09-13] MEDS ORDERED: FENOFIBRATE NANOCRYSTALLIZED 145 MG TABLET PO SCH (10:00)
[2017-09-13] MEDS ORDERED: FUROSEMIDE 40 MG TABLET PO SCH (10:00)
[2017-09-13] MEDS ORDERED: ASPIRIN ENTERIC COATED 81 MG TABLET.DR. PO SCH (10:00)
[2017-09-13] MEDS ORDERED: DICLOFENAC SODIUM 1% TOPICAL GEL 100GM TUBE. TP SCH (10:00)
[2017-09-13] MEDS ORDERED: CHOLECALCIFEROL (VITAMIN D3) 1,000 UNIT TABLET PO SCH (10:00)
[2017-09-13] MEDS ORDERED: VITAMIN B COMPLEX CAPSULE. PO SCH (10:00)
[2017-09-13] MEDS ORDERED: ALLOPURINOL 300 MG TABLET. PO SCH (10:00)
[2017-09-13] MEDS ORDERED: PANTOPRAZOLE 40 MG TABLET. PO SCH (10:00)
[2017-09-13] MEDS ORDERED: LOSARTAN 50 MG TABLET. PO SCH (10:00)
[2017-09-13] MEDS: KETOROLAC 30 MG/ML VIAL. IV PRN (10:24)
[2017-09-13 12:14] VITALS: BP 135/71
[2017-09-13 12:29] LABS: ALBUMIN 3.2 g/dL (3.4-5.0); ALBUMIN/GLOBULIN RATIO 0.9 (1.0-1.7); CALCIUM 9.4 mg/dL (8.5-10.1); CREATININE 1.2 mg/dL (0.6-1.0); GFR 43.8; POTASSIUM 3.6 mmol/L (3.5-5.1); TOTAL BILIRUBIN 0.4 mg/dL (0.2-1.0); TOTAL PROTEIN 6.6 g/dL (6.4-8.2)
[2017-09-13] MEDS ORDERED: OMEGA-3 FATTY ACIDS/FISH OIL 1,000 MG CAPSULE. PO SCH (14:00)
--- NOTE | 2017-09-13 14:16 | HP ---
ADMIT DATE: 09/12/2017 HISTORY OF PRESENT ILLNESS: The patient is a 77-year-old female patient who came to the Emergency Room complaining of pain, mostly in her upper back that is radiating down to her left arm associated with the numbness involving all the fingers. The patient stated the pain has persisted and therefore, she decided to present for further evaluation. Her pain was rated as about an 8/10 in severity, has improved down after she has received Toradol injection yesterday. She has also had massage and a muscle relaxant; however, it continued thereafter without improvement. She apparently follows with Dr. Vergara and she had had an echocardiogram done recently about 2 weeks ago, which showed that she has left ventricular hypertrophy and she had had stress test done earlier this year and that was deemed to be low risk for significant coronary artery disease. She apparently was evaluated in the Emergency Room and her EKG, which showed sinus bradycardia with heart rate in the lower 40s and her propranolol was discontinued and has had her first set of cardiac enzyme, which showed troponin to be less than 0.017 and therefore, the patient admitted to do 2 more sets of cardiac enzymes, check her fasting lipid profile and to consult the cardiology team. PAST MEDICAL HISTORY: Significant for hypertension, hyperlipidemia, chronic kidney disease, bilateral lower extremity lymphedema, osteoarthritis and gout. PAST SURGICAL HISTORY: Significant for 3 C-sections, extracorporeal shock wave lithotripsy for renal calculi, during which she had what seemed to be hydronephrosis and sepsis due to urinary tract infection, total abdominal hysterectomy and unilateral oophorectomy. She has left wrist fracture, status post open reduction and internal fixation, esophagogastroduodenoscopy and colonoscopy. ALLERGIES: She is allergic to CODEINE. MEDICATIONS: She is currently on following medications: She is on fenofibrate 135 mg once a day, atorvastatin calcium 80 mg at bedtime, omega-3 fatty acid 1000 mg 3 times a day, propranolol 40 mg daily, losartan potassium 50 mg daily. She is on aspirin 81 mg once a day, potassium chloride 20 mEq once a day, furosemide 40 mg daily, Nexium 40 mg once a day, cyanocobalamin 1000 mcg once a day, cholecalciferol for vitamin D3 1000 international unit once a day, allopurinol 300 mg once a day, glucosamine and chondroitin sulfate 1 tablet once a day, CoQ10 one tablet once a day and B complex 1 tablet once a day. FAMILY HISTORY: She has one brother who is alive and has hypertension, hyperlipidemia and skin cancer. Her father at the age of 90 because of coronary artery disease, seems to be a vasculopath, has required bilateral carotid endarterectomy, triple bypass, aortic valve replacement and multiple angioplasties. Her mother at age of 93 because of COPD and atrial fibrillation. SOCIAL HISTORY: She is , has 2 daughters and 1 son. She never smoked, does not drink alcohol or use recreational drugs. 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 REVIEW OF SYSTEMS: The patient denied any blurring of vision, cataract, glaucoma or macular degeneration. Denied any earache, tinnitus or sensorineural deafness. Denied any nosebleeds, stuffy nose or postnasal drip. Denied any sore throat, sore tongue, toothache, hoarseness of voice or difficulty swallowing. Denied any nausea, vomiting, diarrhea or constipation. Denied any hematemesis, melena or hematochezia. Denied any dysuria, frequency or hematuria. Denied any chest pain, shortness of breath, orthopnea or paroxysmal nocturnal dyspnea. Denied any cough, phlegm or hemoptysis. Denied any dizziness, lightheadedness, or vertigo. She denied any chills, rigors, or fever. PHYSICAL EXAMINATION: GENERAL: On arrival to the Emergency Room, she looked well and was clearly in no apparent respiratory distress. No pallor, jaundice, cyanosis, lymphadenopathy or thyromegaly. No jugular venous distension. No limb edema. VITAL SIGNS: Her heart rate was 70, blood pressure 138/83, temperature was 98.2, respiratory rate was 16, and oxygen saturation was 96%. HEENT: Showed normocephalic, atraumatic. NECK: Supple. HEART: Showed normal first and second heart sounds with no gallop, rub or murmur. CHEST: Clear to auscultation. No crepitation or rhonchi. ABDOMEN: Distended, soft, nontender. No guarding or rigidity. No organomegaly. Hernial orifice intact. Bowel sounds normal. NEUROLOGIC: She was awake, alert, responding appropriately. All cranial nerves intact. She moves extremities without difficulty. She definitely has marked tenderness around the T3-T4 level with numbness in the tips of his left hand and left fingers, pointing to some form of cervicothoracic radiculopathy. LABORATORY DATA: Her lab work showed a serum sodium was 139, potassium 3.7, chloride 101, bicarbonate 29, anion gap of 9, BUN 28, creatinine 1.1, estimated GFR was 48 mL per minute. Her glucose was 109. Calcium was 10.5, magnesium was 1.8. Total bilirubin, AST, ALT, alkaline phosphatase were normal. Her first set of cardiac enzymes showed troponin to be less than 0.17. Her total protein was 7.7, albumin 3.9. Lipase was 151. Her white cell count was 6700, hemoglobin 15.5, hematocrit 46, MCV 89 and platelet count 210,000. Her prothrombin time was 10.8, INR 1.1. Urinalysis was essentially unremarkable. RADIOLOGICAL DATA: Her abdominal ultrasound showed that the pancreas is unremarkable. The head of the pancreas is not well visualized due to overlying bowel gas. Liver is normal in echogenicity. No focal hepatic masses are identified. Portal flow is hepatopetal. The right hepatic lobe measures 19.3. The bladder is unremarkable in appearance. Common bile duct caliber is normal, measuring 6 mm in diameter. Her right kidney measures 9.7 cm in length and is without evidence of obstruction or stone. There is a right upper pole cyst measuring up to 1.6 cm. The IVC is unremarkable. Her chest x-ray showed that the cardiomediastinal silhouette is within normal limits for size. Bilateral lung cornejo appear clear without evidence of infiltrate, effusion or pneumothorax. Multiple thoracic level demonstrates marginal disk osteophytes. Her CT scan of the head showed that there is no evidence of acute intracranial hemorrhage, no extraaxial fluid collection, no mass effect or midline shift, ventricular size is appropriate. Basal cisterns are patent. No fracture identified. The banerjee-white differentiation is present. The globes and orbits are within normal limits. Mild opacification of the left mastoid air cells are similar to prior examination. PLAN: As I stated earlier, the patient was admitted to telemetry bed. We will do 2 more sets of cardiac enzymes, consult the Cardiology team and decide on the further management accordingly. MARQUISE SANDERS MD DR: SALOMÓN/sathya JOB#: [id number] / [id number]
--- NOTE | 2017-09-13 15:23 | DS ---
DATE OF DISCHARGE: 09/13/2017 HOSPITAL COURSE: The patient is a 77-year-old female patient who was admitted with a complaint of upper back pain radiating to her left arm with tingling and numbness in her left fingers. She was concerned that this may indicate a heart attack; however, she has had a nuclear stress test done recently which was negative and echocardiogram showed that she has left ventricular hypertrophy. She was seen in the Emergency Room. Her EKG showed she is in sinus rhythm with no ST segment elevation or depression. Her first set of cardiac enzymes was normal. She was admitted and had 2 more sets of cardiac enzymes that were negative. She was seen in consultation by the Cardiology team and plan was to discharge her home. I have arranged for her to have an MRI of her cervical and thoracic spine. PHYSICAL EXAMINATION: GENERAL: When I examined her this afternoon, she looked well and was clearly in no apparent respiratory distress. No pallor, jaundice, cyanosis, lymphadenopathy or thyromegaly. No jugular venous distension. No limb edema. VITAL SIGNS: Her heart rate was 72, blood pressure 135/71, temperature was 98.1, respiratory rate was 20, and oxygen saturation was 99%. HEAD, EYES, EARS, NOSE AND THROAT: Showed normocephalic, atraumatic. NECK: Supple. HEART: Showed normal first and second sounds. No gallop, rub or murmur. CHEST: Clear to auscultation. No crepitation or rhonchi. ABDOMEN: Distended, soft, nontender. No guarding or rigidity. No organomegaly. Hernial orifice intact. Bowel sounds normal. NEUROLOGIC: She is awake, alert, responding appropriately. Cranial nerves intact. EXTREMITIES: She moves extremities without difficulty. LABORATORY DATA: Her lab work this morning showed that 2 more sets of cardiac enzymes showed troponin to be less than 0.017. Her serum sodium was 142, potassium 3.6, chloride 103, bicarbonate 29, anion gap of 10, BUN 34, creatinine 1.2, estimated GFR was 43 mL per minute. Her glucose was 127, calcium was 9.4. Total bilirubin, AST, ALT, alkaline phosphatase were normal. DISCHARGE MEDICATIONS: The patient was discharged home to continue on following medication: Allopurinol 300 mg once a day, aspirin 81 mg once a day, atorvastatin calcium 80 mg at bedtime, cholecalciferol 1000 international units once a day, cyanocobalamin 100 mcg once a day, Nexium 40 mg daily, fenofibrate 135 mg once a day, furosemide 40 mg once a day, glucosamine/chondroitin sulfate 1 capsule once a day, omega-3 fatty acid 1000 mg 3 times a day, potassium chloride for Klor-Con 20 mEq once a day and CoQ10 100 mg soft gel once a day. She is also on losartan 100 mg once a day. Her propranolol was discontinued. FINAL DISCHARGE DIAGNOSES: Cervicothoracic radiculopathy with pain, tingling and numbness in left upper extremity for which we arranged an MRI of his cervical and thoracic spine; hypertension, hyperlipidemia, chronic obstructive pulmonary disease, chronic kidney disease, morbid obesity. MARQUISE SANDERS MD DR: SALOMÓN/sathya JOB#: [id number] / [id number]
[2017-09-13] MEDS ORDERED: ATORVASTATIN CALCIUM 20 MG TABLET PO SCH (21:00)
[2017-09-14] MEDS ORDERED: PROPRANOLOL HCL PO SCH (09:00)
[2017-09-14] MEDS ORDERED: LOSARTAN 50 MG TABLET. PO SCH (09:00)
== END 2017-09-13 16:56 | disposition home or self-care (01) | DRG 74 ==
LOC: ER 11:25 → 1 SOUTH 13:05
PROVIDERS: ADMIT Internal Medicine; ATTEND Internal Medicine
DX: M54.13 Radiculopathy, cervicothoracic region (principal); Z68.42 Body mass index [BMI] 45.0-49.9, adult; E66.01 Morbid (severe) obesity due to excess calories; E78.2 Mixed hyperlipidemia; E83.52 Hypercalcemia; I12.9 Hypertensive chronic kidney disease with stage 1 through stage 4 chronic kidney disease, or unspecified chronic kidney disease; I25.10 Atherosclerotic heart disease of native coronary artery without angina pectoris; I51.7 Cardiomegaly; J44.9 Chronic obstructive pulmonary disease, unspecified; N18.9 Chronic kidney disease, unspecified; M10.9 Gout, unspecified; M19.90 Unspecified osteoarthritis, unspecified site; Z80.8 Family history of malignant neoplasm of other organs or systems; Z82.49 Family history of ischemic heart disease and other diseases of the circulatory system; Z86.73 Personal history of transient ischemic attack (TIA), and cerebral infarction without residual deficits; Z87.442 Personal history of urinary calculi; Z90.710 Acquired absence of both cervix and uterus; Z90.721 Acquired absence of ovaries, unilateral; Z82.5 Family history of asthma and other chronic lower respiratory diseases; I25.2 Old myocardial infarction; Z87.440 Personal history of urinary (tract) infections; Z88.8 Allergy status to other drugs, medicaments and biological substances
CPT/HCPCS: 36415; 70450; 71046; 76705; 80053; 80061; 81003; 82553; 83690; 83735; 83880; 84484; 85025; 85610; 93005; J1885; 99285-25

== ENCOUNTER 2017-11-11 10:28 | Emergency (ER) | payer MEDICARE ==
[~2017-11-11] VITALS: Ht 160 cm; Wt 120.3 kg
[~2017-11-11 10:28] MED LIST changes: +CHOL10003 PO; +CYAN100T PO; +GLUC1CAP48 PO; +LOSA50TA7 PO; +OMEG100021 PO; +PROP40TA PO; +UBID1CAP41 PO
--- NOTE | 2017-11-11 11:17 | RAD ---
Right knee, 3 views, 11/11/2017: HISTORY: Fall, pain There is moderate spurring at the knee joint and at the patellofemoral articulation. No fracture or dislocation is identified. No large joint effusion is seen. Arterial calcifications are noted. IMPRESSION: 1. Moderate degenerative change. 2. No acute bony abnormality is detected. Pelvis with right hip, 3 views, 11/11/2017: No fracture or dislocation is identified. There are mild degenerative changes at both hip joints. There is mild spurring along the margin of the right greater trochanter. Scattered arterial calcifications are present. IMPRESSION: 1. Mild degenerative change at both hip joints. 2. No acute bony abnormality is detected. Right ankle, 2 views, 11/11/2017: No fracture or dislocation is identified. There is moderate diffuse soft tissue swelling. A small inferior calcaneal spur is present. Tendinous calcifications are seen at the Achilles tendon insertion site on the calcaneus. IMPRESSION: No acute bony abnormality is detected. Electronically signed by: Claudio Hicks MD (11/11/2017 11:13 AM) [facility]
--- NOTE | 2017-11-11 11:35 | PHYS DOC ---
Past History Past Medical History: CAD, CVA, High Cholesterol, Hypertension, Kidney Stones Past Surgical History: , Hysterectomy, Other Alcohol Use: None Drug Use: None Adult General Chief Complaint Chief Complaint: MECHANICAL FALL HPI HPI Patient is a 77 year old female who presents with complaining of a mechanical fall yesterday at home and pain in right side of her body. Patient complaining of pain in right hip, right knee, right ankle and lower back that getting worse today and rated her pain 8/10. Patient denies loss of consciousness and head injury, nausea and vomiting, focal neuro deficit, fever and chills. Review of Systems Review of Systems Constitutional: Denies fever or chills [] Eyes: Denies change in visual acuity, redness, or eye pain [] HENT: Denies nasal congestion or sore throat [] Respiratory: Denies cough or shortness of breath [] Cardiovascular: No additional information not addressed in HPI [] GI: Denies abdominal pain, nausea, vomiting, bloody stools or diarrhea [] : Denies dysuria or hematuria [] Musculoskeletal: Reports back pain and joint pain Integument: Denies rash or skin lesions [] Neurologic: Denies headache, focal weakness or sensory changes [] Endocrine: Denies polyuria or polydipsia [] All other systems were reviewed and found to be within normal limits, except as documented in this note. Allergies Allergies Allergies Coded Allergies Type Severity Reaction Last Updated Verified codeine Allergy Mild vomiting 06/03/14 Yes Physical Exam Physical Exam Constitutional: Well developed, well nourished,mild distress, non-toxic appearance. [] HENT: Normocephalic, atraumatic, oropharynx moist, no oral exudates, nose normal. [] Eyes: PERRLA, EOMI, conjunctiva normal, no discharge. [] Neck: Normal range of motion, no tenderness, supple, no stridor. [] Cardiovascular:Heart rate regular rhythm, no murmur [] Lungs & Thorax: Bilateral breath sounds clear to auscultation [] Abdomen: Bowel sounds normal, soft, no tenderness, no masses, no pulsatile masses. [] Skin: Warm, dry, no erythema, no rash. [] Back, no midline tenderness, no CVA tenderness, no sign of injury Extremities: Right hip and right knee and right ankle without deformity, painful range of motion, no neurovascular deficit Neurologic: Alert and oriented X 3, normal motor function, normal sensory function, no focal deficits noted. [] Psychologic: Affect normal, judgement normal, mood normal. [] Current Patient Data Vital Signs Vital Signs Date Time Temp Pulse Resp B/P (MAP) Pulse Ox O2 Delivery O2 Flow Rate FiO2 11/11/17 10:30 98.2 70 22 95 Room Air EKG EKG [] Radiology/Procedures Radiology/Procedures [address] [address] IMAGING REPORT Signed PATIENT: ESTRELLITA WHITE ACCOUNT: [id number] : 1940 LOCATION: ER AGE: 77 SEX: F EXAM STATUS: REG ER ORD. PHYSICIAN: ANTONIO MALDONADO MD REASON: fall PROCEDURE: ANKLE RIGHT 2V Right knee, 3 views, 11/11/2017: HISTORY: Fall, pain There is moderate spurring at the knee joint and at the patellofemoral articulation. No fracture or dislocation is identified. No large joint effusion is seen. Arterial calcifications are noted. IMPRESSION: 1. Moderate degenerative change. 2. No acute bony abnormality is detected. Pelvis with right hip, 3 views, 11/11/2017: No fracture or dislocation is identified. There are mild degenerative changes at both hip joints. There is mild spurring along the margin of the right greater trochanter. Scattered arterial calcifications are present. IMPRESSION: 1. Mild degenerative change at both hip joints. 2. No acute bony abnormality is detected. Right ankle, 2 views, 11/11/2017: No fracture or dislocation is identified. There is moderate diffuse soft tissue swelling. A small inferior calcaneal spur is present. Tendinous calcifications are seen at the Achilles tendon insertion site on the calcaneus. IMPRESSION: No acute bony abnormality is detected. Electronically signed by: Claudio Hicks MD (11/11/2017 11:13 AM) [facility] DICTATED AND SIGNED BY: CLAUDIO HICKS MD DATE: 11/11/17 1110 CC: ANTONIO MALDONADO MD; EKN GOULD MD ~ Course & Med Decision Making Course & Med Decision Making Pertinent Imaging studies reviewed. (See chart for details) Evaluation of patient in ER showed 77-year-old female patient with a fall yesterday and complaining of pain in right lower extremity and back. Patient had unremarkable physical exam and x-ray and didn't want to have pain medication in ER. Patient instructed to apply ice and take pain medication. Dragon Disclaimer Dragon Disclaimer This electronic medical record was generated, in whole or in part, using a voice recognition dictation system. Departure Departure: Impression: Primary Impression: Fall at home Additional Impressions: Right knee sprain Injury of right hip Lumbar sprain Right ankle sprain Morbidly obese Disposition: HOME, SELF-CARE (At 1146) Condition: STABLE Referrals: KEN GOULD MD (PCP) Patient Instructions: Ankle Sprain, Fall Prevention and Home Safety, Knee Sprain Additional Instructions: Apply ice on the affected area Follow-up with your primary care physician in 3-5 days Return to ER if not getting better Scripts Hydrocodone Bit/Acetaminophen (NORCO 5-325 TABLET) 1 Each Tablet 1 TAB PO PRN Q6HRS PRN for PAIN, #14 TAB 0 Refills Prov: ANTONIO MALDONADO MD 11/11/17 Problem Qualifiers ANTONIO MALDONADO MD Nov 11, 2017 11:35
[2017-11-11] MEDS ORDERED: HYDROcodone/APAP 5/325MG 1 TAB TABLET PO ONE (11:45)
[2017-11-11] MEDS ORDERED: HYDR-971 PO (11:49)
[2017-11-11 11:55] VITALS: BP 162/95
== END 2017-11-11 12:00 | disposition home or self-care (01) ==
LOC: ER 10:28
DX: S83.91XA Sprain of unspecified site of right knee, initial encounter (principal); S93.401A Sprain of unspecified ligament of right ankle, initial encounter; S33.5XXA Sprain of ligaments of lumbar spine, initial encounter; S79.911A Unspecified injury of right hip, initial encounter; E66.01 Morbid (severe) obesity due to excess calories; I25.10 Atherosclerotic heart disease of native coronary artery without angina pectoris; E78.00 Pure hypercholesterolemia, unspecified; I10 Essential (primary) hypertension; Z87.442 Personal history of urinary calculi; Z68.42 Body mass index [BMI] 45.0-49.9, adult; Z86.73 Personal history of transient ischemic attack (TIA), and cerebral infarction without residual deficits; Z98.890 Other specified postprocedural states; Z90.710 Acquired absence of both cervix and uterus; Z88.5 Allergy status to narcotic agent; W19.XXXA Unspecified fall, initial encounter; Y93.89 Activity, other specified; Y92.098 Other place in other non-institutional residence as the place of occurrence of the external cause; Y99.8 Other external cause status
CPT/HCPCS: 73502; 73562; 73600; 99284

== ENCOUNTER → 2019-03-09 | Outpatient (CLI) | payer MEDICARE ==
[~2019-03-09] MED LIST changes: -CYAN100T PO; +CYAN100T2 PO; +HYDR-3165 PO; +INDO25CA21 PO; -INDO25CA5 PO; -LOSA50TA7 PO; +LOSA50TA86 PO
--- NOTE | 2019-03-09 15:00 | RAD ---
EXAM: Abdomen and pelvis CT without intravenous contrast. HISTORY: Flank pain. TECHNIQUE: Computed tomographic images of the abdomen and pelvis were obtained without contrast. Multiplanar reformatting was performed. *One or more of the following individualized dose reduction techniques were utilized for this examination: 1. Automated exposure control. 2. Adjustment of the mA and/or kV according to patient size. 3. Use of iterative reconstruction technique. COMPARISON: 05/28/2015. FINDINGS: Evaluation of the lower thorax demonstrates left greater than right lower lobe atelectasis or scarring. There is cardiomegaly. There is coronary artery atherosclerosis. There is mild distal esophageal mucosal thickening, not clearly within limits to suggest esophagitis. No suspicious hepatic lesion is seen. The liver is mildly enlarged. Gallbladder, pancreas, spleen and adrenal glands are unremarkable. There is a 6 mm hypodense lesion within the lower pole of the right kidney and 14 mm hypodense lesion with adjacent cortical scarring within the upper pole of the right kidney. The bladder is unremarkable. There is sigmoid diverticulosis. There is no evidence of diverticulitis. There is no bowel obstruction. There is a small fat-containing umbilical hernia and small fat-containing infraumbilical hernia. There is a suspected 2.1 cm left ovarian cyst. There is heavily calcified atherosclerotic plaque within the aorta and main aortic branch vessels. There is no aneurysm. There is no lymphadenopathy. There is no suspicious osseous lesion. There is multilevel degenerative change involving the lumbar spine, resulting in central canal stenosis primarily at L3-L4. IMPRESSION: 1. Colonic diverticulosis without evidence of diverticulitis. 2. Suspected 2.1 cm left ovarian cyst. Given the postmenopausal status the patient, pelvic sonography can be performed for characterization. 3. Mild hepatomegaly. 4. Small hypodense lesions within the right kidney, stable compared to the remote study dated 05/28/2015. The attenuation of the larger lesion favors a cyst in the attenuation of the smaller lesion favors an angiomyolipoma. There is also right renal cortical scarring. 5. Tiny fat-containing umbilical and infraumbilical hernias. Electronically signed by: Leticia Tan MD (03/09/2019 2:57 PM) [facility] [place]
--- NOTE | 2019-03-09 15:56 | RAD ---
EXAM: Lumbar spine, 3 views. HISTORY: Pain. COMPARISON: 06/14/2017 FINDINGS: 3 views of the lumbar spine are obtained. There is grade 1 anterolisthesis of L3 on L4 and L4 and L5. There is degenerative endplate remodeling and facet arthropathy at all levels. No fracture is seen. IMPRESSION: 1. Multilevel degenerative change. 2. Grade 1 anterolisthesis of L3 on L4 and L4 on L5. Electronically signed by: Leticia Tan MD (03/09/2019 3:53 PM) [facility] [place]
== END | disposition home or self-care (01) ==
LOC: CT 12:39
PROVIDERS: ATTEND Family Medicine
DX: M47.816 Spondylosis without myelopathy or radiculopathy, lumbar region (principal); M43.16 Spondylolisthesis, lumbar region; M46.86 Other specified inflammatory spondylopathies, lumbar region; K57.30 Diverticulosis of large intestine without perforation or abscess without bleeding; K42.9 Umbilical hernia without obstruction or gangrene; N28.89 Other specified disorders of kidney and ureter; I51.7 Cardiomegaly; I25.10 Atherosclerotic heart disease of native coronary artery without angina pectoris
CPT/HCPCS: 72100; 74176

== ENCOUNTER → 2020-10-03 | Outpatient (CLI) | payer MEDICARE ==
[~2020-10-03] MED LIST changes: -CYAN100T2 PO; +CYAN100T21 PO; +MULT-445 PO; -MULT1TAB52 PO; +POTA-121 PO; -POTA20TA4 PO
[2020-10-03 16:30] LABS: BASO % 0 % (0-3); EOS % 0 % (0-3); HEMATOCRIT 45.2 % (36.0-47.0); HEMOGLOBIN 14.9 g/dL (12.0-15.5); LYMPH # 1.7 x10^3/uL (1.0-4.8); LYMPH % 30 % (24-48); MEAN CORPUSCULAR HEMOGLOBIN 31 pg (25-35); MEAN CORPUSCULAR HGB CONC 33 g/dL (31-37); MEAN CORPUSCULAR VOLUME 93 fL (79-100); MONO # 0.3 x10^3/uL (0.0-1.1); MONO % 6 % (0-9); NEUT # 3.8 x10^3uL (1.8-7.7); NEUT % 65 % (31-73); PLATELET COUNT 183 x10^3/uL (140-400); RED BLOOD COUNT 4.86 x10^6/uL (3.50-5.40); RED CELL DISTRIBUTION WIDTH 16.1 % (11.5-14.5); WHITE BLOOD COUNT 5.9 x10^3/uL (4.0-11.0)
[2020-10-03 16:37] LABS: ALBUMIN 3.8 g/dL (3.4-5.0); CALCIUM 8.8 mg/dL (8.5-10.1); CREATININE 0.8 mg/dL (0.6-1.0); GFR 69.4; MAGNESIUM 2.3 mg/dL (1.8-2.4); POTASSIUM 3.9 mmol/L (3.5-5.1); TOTAL BILIRUBIN 0.4 mg/dL (0.2-1.0); TOTAL PROTEIN 7.5 g/dL (6.4-8.2)
[2020-10-05 07:08] LABS: HEMOGLOBIN A1C 5.6 % (4.8-5.6)
== END ==
LOC: LAB 15:14
PROVIDERS: ATTEND Specialist
DX: I50.9 Heart failure, unspecified (principal); E78.5 Hyperlipidemia, unspecified; E87.6 Hypokalemia; Z79.899 Other long term (current) drug therapy
CPT/HCPCS: 36415; 80053; 80061; 83036; 83735; 84443; 85025